=== PATIENT | female | born 1930 | race Caucasian/White ===

== ENCOUNTER 2017-04-09 21:00 | Emergency (ER) | payer MEDICARE, BC ==
[2017-04-09] MEDS ORDERED: LORazepam 0.5 MG Tab PO ONE (21:55)
[2017-04-09] MEDS ORDERED: Heparin Sodium 5,000 Units/ML Vial IVPUSH ONE (22:37)
[2017-04-09] MEDS ORDERED: Heparin Sodium/D5W 25,000 UNITS/500 ML BAG IV SCH (22:45)
--- NOTE | 2017-04-10 01:16 | ER ---
DATE SEEN: 04/09/2017 CHIEF COMPLAINT: Palpitations. HISTORY OF PRESENT ILLNESS: An 86-year-old female with palpitations that started suddenly this evening, heart racing, and shortness of breath. She also feels anxious. She has a recent history of atrial fibrillation and started Coumadin yesterday. PAST MEDICAL HISTORY: Coronary artery disease, gallbladder disease. ALLERGIES: Amoxicillin. MEDICATIONS: Reviewed. PHYSICAL EXAMINATION: GENERAL: She is not in distress. VITAL SIGNS: Her blood pressure is normal. Pulse is 106, temperature 98.1. EARS, NOSE, AND THROAT: Negative. HEAD: Normal size. CHEST: Clear. CARDIOVASCULAR: Irregular rate and rhythm. No murmurs. ABDOMEN: Soft. MENTAL STATUS: Alert. IMAGING: Chest x-ray, unremarkable. EKG, atrial fibrillation. LABORATORY DATA: Troponin was up to 0.13. FINAL IMPRESSION: 1. [id number] elevation myocardial infarction. 2. Atrial fibrillation. PLAN: Started a bolus of heparin and we will continue the drip. Transfer to [place]. TIME SEEN: 2200 hours. /[id number] TREY/ANSONL
[2017-04-10 03:27] VITALS: BP 125/83
--- NOTE | 2017-04-10 11:12 | CR ---
INDICATION: Irregular heartbeat. CHEST: An AP upright view of the chest was obtained 04/09/2017. No comparisons were available. The heart appears mildly enlarged. The aorta is tortuous with some calcification in the arch. Overlying EKG leads are noted. Degenerative changes and impingement are seen at the shoulder joints. A definite active infiltrate or effusion was not identified. The lungs appear to be slightly hyperaerated, but this should be correlated clinically as a possible sign of COPD. IMPRESSION: No acute process - findings as noted above. MTDD
== END 2017-04-09 23:50 ==
LOC: FB.ED 21:00
DX: I21.4 Non-ST elevation (NSTEMI) myocardial infarction (principal); I48.91 Unspecified atrial fibrillation; I25.10 Atherosclerotic heart disease of native coronary artery without angina pectoris; Z88.1 Allergy status to other antibiotic agents
CPT/HCPCS: 36415; 71010; 80048; 83880; 84484; 85025; 85610; 93005; 96365; 96376; 99285; A9270; J1644; 99284

== ENCOUNTER 2019-03-24 10:45 | Emergency (ER) | payer MEDICARE, BC ==
[2019-03-24] MEDS ORDERED: traMADol 50 MG Tab PO ONE (11:23)
--- NOTE | 2019-03-24 11:30 | EDM.PDOC ---
ED HPI GENERAL MEDICAL PROBLEM - General Chief Complaint: Lower Extremity Injury/Pain Stated Complaint: FELL, HIP PAIN Time Seen by Provider: 03/24/19 11:08 Source of Information: Reports: Patient History Limitations: Reports: No Limitations - History of Present Illness INITIAL COMMENTS - FREE TEXT/NARRATIVE: 88-year-old female who reports that she rolled out of bed this morning and approximate 7 AM and landed on her left hip with her left hip area striking a rocking chair. She did not hit her head. There was no loss of consciousness. She got back up and went back to bed and really did not feel that she had any pain at that time. She did get up from bed at around 9 AM and since that time she has had increasing pain in her left hip and now finds that she is really unable to bear any weight on her left leg without fairly severe pain in her left hip area. She rates the pain in her left hip is a 9/10. It is a sharp and sore pain. It is worse with movement and with palpation. She has no head pain. She has no neck or back pain. She has no abdominal pain. She's had no problems urinating. There are no other associated signs or symptoms. There are no other modifying factors. 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) hip Pain Score (Numeric/FACES): 9 - Related Data Allergies Allergy/AdvReac Type Severity Reaction Status Date / Time amoxicillin Allergy Rash Verified 03/24/19 12:47 Home Meds: Home Meds Aspirin [Halfprin] 81 mg PO DAILY 03/24/19 [History] Cyanocobalamin (Vitamin B-12) [Vitamin B-12] 100 mcg PO DAILY 03/24/19 [History] Fluticasone Propionate [Flonase] 1 spray ERNIE DAILY 03/24/19 [History] Isosorbide Mononitrate [Imdur] 60 mg PO DAILY 03/24/19 [History] Levothyroxine Sodium [Synthroid] 75 mcg PO ACBREAKFAST 03/24/19 [History] Lovastatin [Mevacor] 20 mg PO DAILY 03/24/19 [History] Methotrexate Sodium [Methotrexate] 12.5 mg PO WEEKLY 03/24/19 [History] Nitroglycerin [Nitrostat] 0.4 mg SL ASDIRECTED 03/24/19 [History] Warfarin Sodium [Jantoven] 2.5 mg PO DAILY 03/24/19 [History] sulfaSALAzine [sulfaSALAzine DR] 500 mg PO BID 03/24/19 [History] Past Medical History Cardiovascular History: Reports: Afib, CAD, Hypertension Musculoskeletal History: Reports: RA Hematologic History: Reports: Anticoagulation Therapy (On Coumadin) - Past Surgical History Cardiovascular Surgical History: Reports: Percutaneous Transluminal Angioplasty (Of coronary arteries) Musculoskeletal Surgical History: Reports: Knee Replacement (Bilateral) Social & Family History - Tobacco Use Smoking Status *Q: Unknown Ever Smoked (Nonsmoker) - Caffeine Use Caffeine Use: Reports: Coffee - Alcohol Use Alcohol Use History: No - Living Situation & Occupation Occupation: Retired Social History Comment: Lives with her daughter. Review of Systems - Review of Systems Review Of Systems: See Below Constitutional: Reports: No Symptoms Eyes: Reports: No Symptoms Ears: Reports: No Symptoms Nose: Reports: No Symptoms Mouth/Throat: Reports: No Symptoms Respiratory: Reports: No Symptoms Cardiovascular: Reports: No Symptoms GI/Abdominal: Reports: No Symptoms Genitourinary: Reports: No Symptoms Musculoskeletal: Reports: Joint Pain (Left hip pain), Joint Swelling (Over lateral left hip area) Skin: Reports: No Symptoms (No open wounds.) Neurological: Reports: No Symptoms (No loss of consciousness. No dizziness.) Psychiatric: Reports: No Symptoms ED EXAM, GENERAL - Physical Exam Exam: See Below Exam Limited By: No Limitations General Appearance: Alert, WD/WN, Mild Distress Eye Exam: Bilateral Eye: EOMI, Normal Inspection, PERRL Ears: Normal External Exam, Hearing Grossly Normal Nose: Normal Inspection, Normal Mucosa, No Blood Throat/Mouth: Normal Inspection, Normal Voice, No Airway Compromise Head: Atraumatic, Normocephalic Neck: Normal Inspection, Supple, Non-Tender, Full Range of Motion Respiratory/Chest: No Respiratory Distress, Lungs Clear, Normal Breath Sounds, No Accessory Muscle Use Cardiovascular: Normal Peripheral Pulses, No JVD, Irregularly Irregular Peripheral Pulses: 2+: Radial (L), Radial (R) GI/Abdominal: Normal Bowel Sounds, Soft, Non-Tender, No Organomegaly, No Distention, No Mass, Pelvis Stable Extremities: Normal Capillary Refill, Other (Tender with palpation and some swelling over the left greater trochanter area.) Neurological: Alert, Oriented, CN II-XII Intact, Normal Cognition, No Motor/ Sensory Deficits Lymphatic: No Adenopathy Course - Vital Signs Last Recorded V/S: Last Vital Signs Temp 36.6 C 03/24/19 13:20 Pulse 82 03/24/19 14:28 Resp 18 03/24/19 14:28 BP 106/58 L 03/24/19 14:28 Pulse Ox 100 03/24/19 14:28 - Orders/Labs/Meds Orders: Active Orders 24 hr Category Date Time Status Hip Min 2V or 3V w Pelvis Lt [CR] Stat Exams 03/24/19 10:51 Taken Pelvis wo Cont [CT] Stat Exams 03/24/19 11:45 Taken Labs: Laboratory Tests 03/24/19 03/24/19 03/24/19 Range/Units 11:43 11:48 11:48 WBC 17.2 H (4.5-12.0) X10-3/uL RBC 4.29 (3.23-5.20) x10(6)uL Hgb 13.3 (11.5-15.5) g/dL Hct 40.4 (30.0-51.3) % MCV 94.1 (80-96) fL MCH 31.0 (27.7-33.6) pg MCHC 33.0 (32.2-35.4) g/dL RDW 15.8 H (11.5-15.5) % Plt Count 208 (125-369) X10(3)uL MPV 9.7 (7.4-10.4) fL Add Manual Diff Yes Neutrophils % (Manual) 91 H (46-82) % Band Neutrophils % 2 (0-6) % Lymphocytes % (Manual) 6 L (13-37) % Monocytes % (Manual) 1 L (4-12) % PT 14.8 H (8.7-11.1) INR 1.54 H (0.89-1.13) Sodium 142 (135-145) mmol/L Potassium 4.2 (3.5-5.3) mmol/L Chloride 103 (100-110) mmol/L Carbon Dioxide 26 (21-32) mmol/L BUN 21 H (7-18) mg/dL Creatinine 1.2 H (0.55-1.02) mg/dL Est Cr Clr Drug Dosing TNP Estimated GFR (MDRD) 42 L (>60) BUN/Creatinine Ratio 17.5 (9-20) Glucose 118 H (80-116) mg/dL Calcium 9.7 (8.6-10.2) mg/dL Total Bilirubin 0.7 (0.1-1.3) mg/dL AST 27 H (5-25) IU/L ALT 29 (12-36) U/L Alkaline Phosphatase 115 H (56-112) IU/L Total Protein 6.7 (6.0-8.0) g/dL Albumin 3.5 (3.2-4.6) g/dL Globulin 3.2 g/dL Albumin/Globulin Ratio 1.1 Meds: Medications Discontinued Medications Generic Name Dose Route Start Last Admin Trade Name Freq PRN Reason Stop Dose Admin Ondansetron HCl 4 mg 03/24/19 12:42 03/24/19 12:46 Zofran Odt PO 03/24/19 12:43 4 mg ONETIME ONE Administration Tramadol HCl 50 mg 03/24/19 11:23 03/24/19 11:30 Ultram PO 03/24/19 11:24 50 mg ONETIME ONE Administration - Radiology Interpretation Free Text/Narrative:: Left hip x-ray showed no fracture per the radiologist. However, because of the patient's significant pain in the area of her hip, I have ordered a CT scan of her pelvis and left hip to be performed. CT scan of pelvis and left hip showed no fracture or any other acute abnormality per the radiologist. - Re-Assessments/Exams Free Text/Narrative Re-Assessment/Exam: 03/24/19 13:25: The CT scan of the patient's illness and left hip showed no fracture. She seemed to feel pretty nauseated and dizzy after the tramadol and therefore was given Zofran. The plan will be to get her up and ambulate her and see how she does. 03/24/19 13:30: Patient's blood pressure was 70-80 systolic. I will order a CBC and a CMP and the patient will be placed in bed with close monitoring. I suspect this is related to tramadol. 03/24/19 14:20: Patient is resting comfortably and her blood pressure is 105 systolic. Her blood tests were reassuringly normal. We will continue to monitor her for a short period longer and then will get her up and ambulate her. If she is doing okay at this point with an improved blood pressure, we will discharge her. In regard to her INR which is subtherapeutic, the Coumadin clinic nurse will follow through with this with the patient. 03/24/19 14:52: Patient's repeat blood pressure was 106/57 now. She feels much improved. She is able to ambulate with a walker with no problems. I am fairly certain that her dip in blood pressure was an adverse reaction to the tramadol. Departure - Departure Time of Disposition: 14:55 Disposition: Home, Self-Care 01 Condition: Good Clinical Impression: Contusion of left hip, initial encounter, Subtherapeutic international normalized ratio (INR), Transient hypotension, Adverse reaction to tramadol - Discharge Information Instructions: Contusion, [id number] Referrals: Clemente Schmitt MD [Primary Care Provider] - Forms: ED Department Discharge Additional Instructions: The x-ray of your left hip and pelvis and the CT scan of your left hip and pelvis showed no fractures. You appear to have a bruise to your left hip. The weak feeling and nausea feeling that you had in the emergency department was most probably an adverse reaction to the pain medication that I gave you. You may take Tylenol 1000 mg by mouth every 6 hours as needed for pain. You should apply ice packs intermittently to the bruised area. Use a walker for help with ambulation until your hip pain has improved/resolved. Your INR was also a little low. The Coumadin clinic nurse will follow-up with you in regard to this and adjust urine Coumadin/Jantoven dosing. Back to the emergency department for abdominal pain, worsening weakness or dizziness, marked increase in pain in your hip or pelvis or any other concerning sign or symptom. - My Orders Last 24 Hours: My Active Orders 03/24/19 10:51 Hip Min 2V or 3V w Pelvis Lt [CR] Stat 03/24/19 11:45 Pelvis wo Cont [CT] Stat - Assessment/Plan Last 24 Hours: My Active Orders 03/24/19 10:51 Hip Min 2V or 3V w Pelvis Lt [CR] Stat 03/24/19 11:45 Pelvis wo Cont [CT] Stat
[2019-03-24] MEDS ORDERED: Ondansetron 4 MG Tab.DIS PO ONE (12:42)
[2019-03-24 16:22] VITALS: BP 107/57
== END 2019-03-24 15:25 | disposition home or self-care (01) ==
LOC: FB.ED 10:45
DX: S70.02XA Contusion of left hip, initial encounter (principal); R03.1 Nonspecific low blood-pressure reading; T40.4X5A Adverse effect of other synthetic narcotics, initial encounter; R79.1 Abnormal coagulation profile; I48.91 Unspecified atrial fibrillation; I25.10 Atherosclerotic heart disease of native coronary artery without angina pectoris; I10 Essential (primary) hypertension; Z88.1 Allergy status to other antibiotic agents; Z79.899 Other long term (current) drug therapy; Z79.82 Long term (current) use of aspirin; W06.XXXA Fall from bed, initial encounter
CPT/HCPCS: 36415; 72192; 73502; 80053; 85025; 85610; 99284; A9270

== ENCOUNTER 2020-11-14 19:06 | Emergency (ER) | payer MEDICARE, BC ==
[2020-11-14] MEDS ORDERED: Sodium Chloride 0.9% 10 ML Syringe FLUSH PRN (19:25)
--- NOTE | 2020-11-14 20:09 | EDM.PDOC ---
ED HPI GENERAL MEDICAL PROBLEM - General Chief Complaint: General Stated Complaint: confusion Time Seen by Provider: 11/14/20 19:15 Source of Information: Reports: Patient History Limitations: Reports: No Limitations - History of Present Illness INITIAL COMMENTS - FREE TEXT/NARRATIVE: Patient presented to the ED because of slurred speech and confusion which occurred at 1700 up to 1900. Two hours later her slurred speech resolved. There is no motor and sensory deficits according to the daughter who witnessed it. There is no fever, chills,cough or cold symptoms. 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 - Related Data Allergies Allergy/AdvReac Type Severity Reaction Status Date / Time amoxicillin Allergy Rash Verified 03/24/19 12:47 Home Meds: Home Meds Aspirin [Halfprin] 81 mg PO DAILY 03/24/19 [History] Cyanocobalamin (Vitamin B-12) [Vitamin B-12] 100 mcg PO DAILY 03/24/19 [History] Fluticasone Propionate [Flonase] 1 spray ERNIE DAILY 03/24/19 [History] Isosorbide Mononitrate [Imdur] 60 mg PO DAILY 03/24/19 [History] Levothyroxine Sodium [Synthroid] 75 mcg PO ACBREAKFAST 03/24/19 [History] Lovastatin [Mevacor] 20 mg PO DAILY 03/24/19 [History] Nitroglycerin [Nitrostat] 0.4 mg SL ASDIRECTED 03/24/19 [History] Warfarin Sodium [Jantoven] 2.5 mg PO DAILY 03/24/19 [History] metHOTREXate sodium [Methotrexate] 12.5 mg PO WEEKLY 03/24/19 [History] sulfaSALAzine [sulfaSALAzine DR] 500 mg PO BID 03/24/19 [History] Past Medical History HEENT History: Reports: Hard of Hearing, Impaired Vision Cardiovascular History: Reports: Afib, CAD, Hypertension, VA Other Cardiovascular History: 20 yrs ago, VA, Genitourinary History: Reports: Urinary Incontinence 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 Endocrine/Metabolic History: Reports: Hypothyroidism Hematologic History: Reports: Anticoagulation Therapy - Infectious Disease History Infectious Disease History: Reports: Chicken Pox - Past Surgical History HEENT Surgical History: Reports: None, Tonsillectomy Cardiovascular Surgical History: Reports: Carotid Stents, Percutaneous Transluminal Angioplasty Female Surgical History: Reports: None Endocrine Surgical History: Reports: None Musculoskeletal Surgical History: Reports: Knee Replacement Social & Family History - Tobacco Use Tobacco Use Status *Q: Never Tobacco User - Caffeine Use Caffeine Use: Reports: None - Recreational Drug Use Recreational Drug Use: No - Living Situation & Occupation Occupation: Retired ED ROS GENERAL - Review of Systems Review Of Systems: See Below Constitutional: Reports: No Symptoms HEENT: Reports: No Symptoms Respiratory: Reports: No Symptoms Cardiovascular: Reports: No Symptoms Endocrine: Reports: No Symptoms GI/Abdominal: Reports: No Symptoms : Reports: No Symptoms Musculoskeletal: Reports: No Symptoms Skin: Reports: No Symptoms Neurological: Reports: Confusion, Trouble Speaking Psychiatric: Reports: No Symptoms ED EXAM, GENERAL - Physical Exam Exam: See Below Exam Limited By: No Limitations General Appearance: Alert, No Apparent Distress Ears: Normal External Exam, Normal Canal Nose: Normal Inspection, Normal Mucosa, No Blood Throat/Mouth: Normal Inspection, Normal Lips, Normal Teeth Head: Atraumatic, Normocephalic Neck: Normal Inspection, Supple, Non-Tender, Full Range of Motion Respiratory/Chest: No Respiratory Distress, Lungs Clear, Normal Breath Sounds Cardiovascular: Normal Peripheral Pulses, Regular Rate, Rhythm, No Edema GI/Abdominal: Normal Bowel Sounds, Soft, Non-Tender Back Exam: Normal Inspection, Full Range of Motion Course - Vital Signs Text/Narrative:: Labs/EKG/CXR, Head Ct was discussed with patient and her son ASA 324 mg po x1 Last Recorded V/S: Last Vital Signs Temp 36.4 C 11/14/20 19:10 Pulse 52 L 11/14/20 19:10 Resp 18 11/14/20 19:10 BP 153/94 H 11/14/20 19:10 Pulse Ox 95 11/14/20 19:10 - Orders/Labs/Meds Orders: Active Orders 24 hr Category Date Time Status EKG Documentation Completion [RC] ASDIRECTED Care 11/14/20 19:26 Active Chest 1V Frontal [CR] Stat Exams 11/14/20 19:25 Taken Head wo Cont [CT] Stat Exams 11/14/20 19:18 Taken Sodium Chloride 0.9% [Saline Flush] Med 11/14/20 19:25 Active 10 ml FLUSH ASDIRECTED PRN Saline Lock Insert [OM.PC] Routine Oth 11/14/20 19:25 Ordered EKG 12 Lead [EK] Routine Ther 11/14/20 19:25 Ordered Medication Orders Sodium Chloride (Saline Flush) 10 ml FLUSH ASDIRECTED PRN PRN Reason: Keep Vein Open Labs: Laboratory Tests 11/14/20 11/14/20 11/14/20 Range/Units 19:20 19:20 19:20 WBC 7.1 (3.0-10.3) x10-3/uL RBC 4.36 (3.60-5.20) x10(6)uL Hgb 13.3 (11.4-15.5) g/dL Hct 42.3 (34.2-48.2) % MCV 97.0 (76.7-100.5) fL MCH 30.4 (23.9-33.9) pg MCHC 31.4 L (31.9-34.8) g/dL RDW 17.1 H (12.3-16.5) % Plt Count 220 (151-488) x10(3)uL MPV 9.0 (7.1-12.4) fL Neut % (Auto) 59.7 (30.8-76.2) % Lymph % (Auto) 28.7 (18.4-52.1) % Clarke % (Auto) 8.0 (4.4-15.7) % Eos % (Auto) 2.8 (0.6-8.1) % Baso % (Auto) 0.8 (0.2-1.5) % Neut # (Auto) 4.2 (1.5-6.3) x10-3/uL Lymph # (Auto) 2.0 (1.0-4.4) x10-3/uL Clarke # (Auto) 0.6 (0.3-1.0) x10-3/uL Eos # (Auto) 0.2 (0.0-0.8) x10-3/uL Baso # (Auto) 0.1 (0.0-0.1) x10-3/uL PT 18.1 H (9.0-11.1) sec INR 1.74 H (1.00-1.24) APTT 33.0 (24.4-33.2) SECONDS Sodium 138 (135-145) mmol/L Potassium 4.0 (3.5-5.3) mmol/L Chloride 101 (100-110) mmol/L Carbon Dioxide 29 (21-32) mmol/L BUN 15 (7-18) mg/dL Creatinine 0.9 (0.55-1.02) mg/dL Est Cr Clr Drug Dosing 30.44 mL/min Estimated GFR (MDRD) 59 L (>60) BUN/Creatinine Ratio 16.7 (9-20) Glucose 113 (80-116) mg/dL Calcium 8.9 (8.6-10.2) mg/dL Total Bilirubin 0.6 (0.1-1.3) mg/dL AST 33 H D (5-25) IU/L ALT 29 (12-36) U/L Alkaline Phosphatase 108 (56-112) IU/L Troponin I (4.0-60.3) pg/mL Total Protein 7.1 (6.0-8.0) g/dL Albumin 3.9 (2.9-4.5) g/dL Globulin 3.2 g/dL Albumin/Globulin Ratio 1.2 11/14/20 Range/Units 19:20 WBC (3.0-10.3) x10-3/uL RBC (3.60-5.20) x10(6)uL Hgb (11.4-15.5) g/dL Hct (34.2-48.2) % MCV (76.7-100.5) fL MCH (23.9-33.9) pg MCHC (31.9-34.8) g/dL RDW (12.3-16.5) % Plt Count (151-488) x10(3)uL MPV (7.1-12.4) fL Neut % (Auto) (30.8-76.2) % Lymph % (Auto) (18.4-52.1) % Clarke % (Auto) (4.4-15.7) % Eos % (Auto) (0.6-8.1) % Baso % (Auto) (0.2-1.5) % Neut # (Auto) (1.5-6.3) x10-3/uL Lymph # (Auto) (1.0-4.4) x10-3/uL Clarke # (Auto) (0.3-1.0) x10-3/uL Eos # (Auto) (0.0-0.8) x10-3/uL Baso # (Auto) (0.0-0.1) x10-3/uL PT (9.0-11.1) sec INR (1.00-1.24) APTT (24.4-33.2) SECONDS Sodium (135-145) mmol/L Potassium (3.5-5.3) mmol/L Chloride (100-110) mmol/L Carbon Dioxide (21-32) mmol/L BUN (7-18) mg/dL Creatinine (0.55-1.02) mg/dL Est Cr Clr Drug Dosing mL/min Estimated GFR (MDRD) (>60) BUN/Creatinine Ratio (9-20) Glucose (80-116) mg/dL Calcium (8.6-10.2) mg/dL Total Bilirubin (0.1-1.3) mg/dL AST (5-25) IU/L ALT (12-36) U/L Alkaline Phosphatase (56-112) IU/L Troponin I 43.3 (4.0-60.3) pg/mL Total Protein (6.0-8.0) g/dL Albumin (2.9-4.5) g/dL Globulin g/dL Albumin/Globulin Ratio Meds: Medications Generic Name Dose Route Start Last Admin Trade Name Freq PRN Reason Stop Dose Admin Sodium Chloride 10 ml 11/14/20 19:25 Saline Flush FLUSH ASDIRECTED PRN Keep Vein Open Departure - Departure Time of Disposition: 20:30 Disposition: Home, Self-Care 01 Condition: Good Clinical Impression: TIA (transient ischemic attack) - Discharge Information Instructions: Transient Ischemic Attack, [id number] Referrals: Clemente Schmitt MD [Primary Care Provider] - Forms: ED Department Discharge Additional Instructions: Please read discharge instructions on TIA(mini stroke) Take asa 325 mg daily Follow up with your doctor this week Sepsis Event Note (ED) - Evaluation Sepsis Screening Result: No Definite Risk - Focused Exam Vital Signs: Vital Signs Temp Pulse Resp BP Pulse Ox 11/14/20 19:10 36.4 C 52 L 18 153/94 H 95 - My Orders Last 24 Hours: My Active Orders 11/14/20 19:18 Head wo Cont [CT] Stat 11/14/20 19:25 Chest 1V Frontal [CR] Stat Sodium Chloride 0.9% [Saline Flush] 10 ml FLUSH ASDIRECTED PRN Saline Lock Insert [OM.PC] Routine EKG 12 Lead [EK] Routine 11/14/20 19:26 EKG Documentation Completion [RC] ASDIRECTED - Assessment/Plan Last 24 Hours: My Active Orders 11/14/20 19:18 Head wo Cont [CT] Stat 11/14/20 19:25 Chest 1V Frontal [CR] Stat Sodium Chloride 0.9% [Saline Flush] 10 ml FLUSH ASDIRECTED PRN Saline Lock Insert [OM.PC] Routine EKG 12 Lead [EK] Routine 11/14/20 19:26 EKG Documentation Completion [RC] ASDIRECTED
[2020-11-14 21:37] VITALS: BP 154/80; PULSE 72
--- NOTE | 2020-11-15 10:24 | CR ---
INDICATION: Slurred speech. CHEST, ONE VIEW: AP upright portable view of the chest 11/14/20 was compared with 04/09/17. The heart is enlarged. Mitral annular calcifications are noted. Aorta is tortuous with calcification in the arch and descending portions. Dextroconcave rotoscoliosis of the lower thoracic spine is noted. Areas of increased density are scattered about the lungs but most prominently in the upper middle lung field and lower lung field on the right, and could represent areas of minimal patchy pneumonia. This should be correlated clinically as to the possibility of COVID-19. No pleural effusion was seen. IMPRESSION: 1. Patchy areas of infiltration mostly on the right may represent pneumonia and fibrosis - correlate clinically. 2. ASHD with cardiomegaly. 3. Scoliosis. MTDD
== END 2020-11-14 20:40 | disposition home or self-care (01) ==
LOC: FB.ED 19:06
DX: G45.9 Transient cerebral ischemic attack, unspecified (principal); I48.91 Unspecified atrial fibrillation; I25.10 Atherosclerotic heart disease of native coronary artery without angina pectoris; I10 Essential (primary) hypertension; I25.2 Old myocardial infarction; M06.9 Rheumatoid arthritis, unspecified; E03.9 Hypothyroidism, unspecified; Z79.01 Long term (current) use of anticoagulants; Z79.82 Long term (current) use of aspirin; Z79.899 Other long term (current) drug therapy; Z88.0 Allergy status to penicillin
CPT/HCPCS: 36415; 70450; 71045; 80053; 84484; 85025; 85610; 85730; 93005; 99285-25